=== PATIENT | female | born 1980 ===

== ENCOUNTER → 2019-08-27 | Outpatient (CLI) | payer OTHER ==
[~2019-08-27] MED LIST: ATARAX,VISTARIL10 MG PO; ATIVAN0.5 MG PO; BIOTIN1000 MC1 PO; BUSPAR15 MG PO; CARAFATE1 G1 PO; COMPAZINE10 M1 PO; DEPAKENE250 M2 PO; DOXYCYCLINE100 M3 PO; EMGALITY120 MG/1 M SQ; EYE ALLERGY REL15 ML OP; FIBERCON625 MG PO; FISH OIL 500 M1 EAC3 PO; FLAGYL250 MG PO; FLONASE ALLERG9.9 ML NAS; HYOSCYAMINE0.125 MG PO; IMITREX100 MG PO; KETOROLAC10 MG PO; KRISTALOSE10 GM PO; LEVOCARNITINE330 M1 PO; LOTRISONE 0.05%15 GM PO; MELATONIN3 M3 PO; MIRALAX17 GM PO; NATURE'S BLEND F1 MG PO; Nizoral 2%15 GM T; PEPCID40 MG PO; PHILLIPS' COLO1 EACH PO; PRISTIQ100 MG PO; PROAIR HFA8.5 GM INH; PROCTOZONE-HC30 GM R; PROTONIX40 MG PO; SINGULAIR10 M1 PO; SUNMARK MAGNES250 MG PO; SYMB160 INH; TOPAMAX50 MG PO; TRAMADOL HCL50 MG PO; TYLENOL EXTRA500 MG PO; VRAYLAR3 MG PO; WOMEN MULTIVIT1 EACH PO; XARELTO10 MG PO; ZYRTEC10 M3 PO
== END | disposition home or self-care (01) ==
LOC: COVID19 01:23
DX: Z01.818 Encounter for other preprocedural examination (principal); Z11.59 Encounter for screening for other viral diseases; M86.171 Other acute osteomyelitis, right ankle and foot

== ENCOUNTER → 2019-09-01 | Day surgery (SDC) | payer OTHER ==
[~2019-09-01] VITALS: Ht 162.5 cm; Wt 75.3 kg
[2019-09-01 06:45] VITALS: BP 120/67
[2019-09-01 08:40] VITALS: BP 122/59
[2019-09-01 08:55] VITALS: BP 122/59
[2019-09-01 09:10] VITALS: BP 130/92
[2019-09-01 09:25] VITALS: BP 115/70
[2019-09-01 09:37] VITALS: BP 121/55
[2019-09-02 10:07] LABS: ACID FAST SPEC PROCESSING Tissue Grinding (.)
== END | disposition home or self-care (01) ==
LOC: SDC 08-27 13:15
PROVIDERS: Podiatrist
DX: T84.84XA Pain due to internal orthopedic prosthetic devices, implants and grafts, initial encounter (principal); M86.171 Other acute osteomyelitis, right ankle and foot; F41.9 Anxiety disorder, unspecified; F32.9 Major depressive disorder, single episode, unspecified; J45.909 Unspecified asthma, uncomplicated; K21.9 Gastro-esophageal reflux disease without esophagitis; Y83.8 Other surgical procedures as the cause of abnormal reaction of the patient, or of later complication, without mention of misadventure at the time of the procedure; Y92.89 Other specified places as the place of occurrence of the external cause; Z98.890 Other specified postprocedural states; Z79.899 Other long term (current) drug therapy

== ENCOUNTER → 2019-09-29 | Day surgery (SDC) | payer OTHER ==
[2019-09-29] VITALS (7 sets, daily range): BP systolic 124–139; BP diastolic 74–88
[~2019-09-29] VITALS: Ht 162.5 cm; Wt 74.8 kg
[~2019-09-29] MED LIST changes: +ABILIFY15 MG PO; +NORCO 5-325 TA1 EACH PO
[2019-09-30 13:09] LABS: ACID FAST SPEC PROCESSING Tissue Grinding (.)
== END | disposition home or self-care (01) ==
LOC: SDC 09-20 14:45
PROVIDERS: Podiatrist
DX: S92.311K Displaced fracture of first metatarsal bone, right foot, subsequent encounter for fracture with nonunion (principal); M24.571 Contracture, right ankle; M96.89 Other intraoperative and postprocedural complications and disorders of the musculoskeletal system; M20.21 Hallux rigidus, right foot; M21.961 Unspecified acquired deformity of right lower leg; M00.879 Arthritis due to other bacteria, unspecified ankle and foot; X58.XXXD Exposure to other specified factors, subsequent encounter; J45.909 Unspecified asthma, uncomplicated; K21.9 Gastro-esophageal reflux disease without esophagitis; F41.9 Anxiety disorder, unspecified; F32.9 Major depressive disorder, single episode, unspecified; Z98.890 Other specified postprocedural states; Z79.899 Other long term (current) drug therapy